=== PATIENT | female | born 1930 | race Caucasian/White ===

== ENCOUNTER 2017-02-07 06:06 | Day surgery (SDC) | payer MEDICARE, OTHER ==
[~2017-02-07 06:06] MED LIST: Lactated Ringers 1,000 ML IV SCH; Lidocaine 1%/Sod Bicarbonate in NS 8.4% 1 ML Syringe IV PRN; Sodium Chloride 0.9% 10 ML Syringe FLUSH PRN
[2017-02-07] MEDS ORDERED: ceFAZolin 1 GM Vial ONE (07:10)
[2017-02-07] MEDS ORDERED: Lidocaine 1% 30 ML SDV ONE (07:13)
[2017-02-07] MEDS ORDERED: Bupivacaine 0.25% 10 ML SDV ONE (07:13)
[2017-02-07] MEDS ORDERED: ceFAZolin 2 GM in Premix Bag 1 BAG IV SCH (07:15)
[2017-02-07 08:13] VITALS: BP 132/68
--- NOTE | 2017-02-07 09:54 | PCM.OPNOTE ---
- General Post-Op/Procedure Note Date of Surgery/Procedure: 02/07/17 Operative Procedure(s): revision left carpal tunnel release Pre Op Diagnosis: left carpal tunnel release Post-Op Diagnosis: Same Anesthesia Technique: Local Primary Surgeon: Amandeep Hernandez Forestry Worker: Saumya Moran in mLs: 5 Complications: None Condition: Good
--- NOTE | 2017-02-13 09:02 | OR ---
DATE OF OPERATION: 02/07/2017 SURGEON: Amandeep Hernandez MD OPERATION PERFORMED: Revision of left carpal tunnel release. 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 POSTOPERATIVE DIAGNOSIS: Left median nerve compression neuropathy. ANESTHESIA TECHNIQUE: Local. ANESTHESIA: None. COMPANY ACCOUNTANT: Saumya Moran PA-C. ESTIMATED BLOOD LOSS: 5 mL. COMPLICATIONS: None. CONDITION: Stable. DESCRIPTION OF PROCEDURE: The patient was identified in the preop holding area. Proper site was marked and identified by the surgeon. The patient was taken back to the operating theater, where after adequate anesthesia, the patient's left upper extremity was sterilely prepped and draped in the usual sterile fashion. OR time-out was performed. The patient received 2 g of IV Ancef in the PACU. At this time, the left upper extremity was anesthetized using 0.25% Marcaine without epinephrine and 1% lidocaine without epinephrine, both the incisional site and at the palmar cutaneous branch of the median nerve. The patient had an Esmarch done in her forearm and used as tourniquet. An incision was made using Edward cardinal line in the ulnar border of the fourth digit. A blunt dissection was taken down to the scar tissue. [place] blade was then used for careful resection of the scar tissue. The median nerve was then identified. A [place] elevator was then placed below the scar tissue and resection of the scar tissue and transverse carpal ligament was done all the way distally to the palmar arch. Once this was completed, attention was turned proximally making sure to keep the tips of ulna just under the scar tissue and ligament. It was released proximally and found to have adequate release both proximally and distally. The nerve was found to be intact. At this time, adequate saline was irrigated through the wound. A 4- 0 nylon simple suture was used for closure of the skin. The patient tolerated the procedure well and sent to PACU in stable condition. MMODAL /[id number]
== END 2017-02-07 08:27 | disposition home or self-care (01) ==
LOC: JD.SDS 06:06
PROVIDERS: ATTEND Orthopaedic Surgery
DX: G56.02 Carpal tunnel syndrome, left upper limb (principal); I25.10 Atherosclerotic heart disease of native coronary artery without angina pectoris; I10 Essential (primary) hypertension; Z79.899 Other long term (current) drug therapy; Z98.890 Other specified postprocedural states; Z96.649 Presence of unspecified artificial hip joint
CPT/HCPCS: 64721; 87641; J0690; J7120

== ENCOUNTER 2019-08-02 09:08 | Emergency (ER) | payer MEDICARE, OTHER ==
[2019-08-02 09:17] VITALS: BP 151/101; PULSE 107
[2019-08-02] MEDS ORDERED: Aspirin 81 MG Tab.Chew PO ONE (10:41)
--- NOTE | 2019-08-02 10:41 | EDM.PDOC ---
ED HPI GENERAL MEDICAL PROBLEM - General Chief Complaint: Respiratory Problem Stated Complaint: SOB Time Seen by Provider: 08/02/19 09:20 Source of Information: Reports: Patient, Family History Limitations: Reports: No Limitations - History of Present Illness INITIAL COMMENTS - FREE TEXT/NARRATIVE: The patient presents with shortness of breath. This started early this started yesterday. She felt like she needed to take a deep breath to catch her breath. This continued this morning at 2:30 am when she got up to go to the bathroom. 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 She denies any chest pain. She has no fever, chills, cough, congestion, runny nose, abdominal pain, nausea or vomiting. She had stents placed a few years ago. She does not smoke and she has no history of asthma or COPD. She has no history of PE or DVT. She has no swelling or pain in her legs. Onset: Gradual Duration: Day(s): (Yesterday) Severity: Moderate Improves with: Reports: None Worsens with: Reports: None Associated Symptoms: Reports: Shortness of Breath. Denies: Chest Pain, Cough, Fever/Chills, Headaches, Nausea/Vomiting - Related Data Allergies Allergy/AdvReac Type Severity Reaction Status Date / Time No Known Allergies Allergy Verified 08/02/19 09:17 Home Meds: Home Meds Aspirin 81 mg PO DAILY 02/06/17 [History] Ezetimibe/Simvastatin [Vytorin 10-40 mg Tablet] 1 tab PO DAILY 02/06/17 [History ] Lisinopril 5 mg PO DAILY 02/06/17 [History] Past Medical History HEENT History: Reports: Impaired Vision, Other (See Below) Other HEENT History: wears glasses Cardiovascular History: Reports: CAD, High Cholesterol, Hypertension, [place], Stents , Other (See Below) Other Cardiovascular History: arteriosclerotic heart disease Respiratory History: Reports: Other (See Below) Other Respiratory History: upper respiratory infection Gastrointestinal History: Reports: Cholelithiasis, Chronic Constipation, Hiatal Hernia ARTIST'S MANAGER History: Reports: None Musculoskeletal History: Reports: Other (See Below) Other Musculoskeletal History: lumbar spinal stenosis Neurological History: Reports: None Psychiatric History: Reports: Anxiety Endocrine/Metabolic History: Reports: None Hematologic History: Reports: None Immunologic History: Reports: None Oncologic (Cancer) History: Reports: None Dermatologic History: Reports: Other (See Below) Other Dermatologic History: seborrheic keratosis - Past Surgical History Head Surgeries/Procedures: Reports: None HEENT Surgical History: Reports: Cataract Surgery Cardiovascular Surgical History: Reports: Coronary Artery Stent Female Surgical History: Reports: Hysterectomy Musculoskeletal Surgical History: Reports: Hip Replacement, Other (See Below) Social & Family History - Tobacco Use Smoking Status *Q: Never Smoker - Caffeine Use Caffeine Use: Reports: Coffee - Recreational Drug Use Recreational Drug Use: No ED ROS GENERAL - Review of Systems Review Of Systems: See Below Constitutional: Reports: No Symptoms HEENT: Reports: No Symptoms Respiratory: Reports: Shortness of Breath. Denies: Cough Cardiovascular: Reports: No Symptoms Endocrine: Reports: No Symptoms GI/Abdominal: Reports: No Symptoms : Reports: No Symptoms Musculoskeletal: Reports: No Symptoms Skin: Reports: No Symptoms ED EXAM, GENERAL - Physical Exam Exam: See Below Exam Limited By: No Limitations General Appearance: Alert, No Apparent Distress Ears: Normal External Exam Nose: Normal Inspection Head: Atraumatic, Normocephalic Neck: Normal Inspection Respiratory/Chest: No Respiratory Distress, Lungs Clear, Normal Breath Sounds Cardiovascular: Regular Rate, Rhythm, No Edema, No Murmur GI/Abdominal: Soft, Non-Tender, No Organomegaly, No Mass Back Exam: Normal Inspection Extremities: Normal Inspection Course - Vital Signs Last Recorded V/S: Last Vital Signs Temp 97.6 F 08/02/19 09:13 Pulse 107 H 08/02/19 09:13 Resp 18 08/02/19 09:13 BP 151/101 H 08/02/19 09:13 Pulse Ox 90 L 08/02/19 09:13 - Orders/Labs/Meds Orders: Active Orders 24 hr Category Date Time Status Cardiac Monitoring [RC] . DIRECTED Care 08/02/19 09:33 Active EKG Documentation Completion [RC] STAT Care 08/02/19 09:33 Active Peripheral IV Care [RC] . DIRECTED Care 08/02/19 10:41 Active Chest 2V [CR] Stat Exams 08/02/19 09:34 Taken PRO B-TYPE NATRIUR PEPT,BNPPRO [CHEM] Stat Lab 08/02/19 11:37 Ordered Sodium Chloride 0.9% [Normal Saline] 100 ml Med 08/02/19 11:00 Active IV ASDIRECTED Sodium Chloride 0.9% [Saline Flush] Med 08/02/19 10:41 Active 10 ml FLUSH ASDIRECTED PRN Peripheral IV Insertion Adult [OM.PC] Routine Oth 08/02/19 10:41 Ordered Medication Orders Sodium Chloride (Normal Saline) 100 mls @ 75 mls/hr IV ASDIRECTED ELI Last Admin: 08/02/19 11:13 Dose: 75 mls/hr Sodium Chloride (Saline Flush) 10 ml FLUSH ASDIRECTED PRN PRN Reason: Keep Vein Open Last Admin: 08/02/19 11:13 Dose: 10 ml Admin: 08/02/19 10:52 Dose: 10 ml Labs: Laboratory Tests 08/02/19 08/02/19 08/02/19 Range/Units 09:55 09:55 09:55 WBC 9.33 (3.98-10.04) K/mm3 RBC 4.97 (3.98-5.22) M/mm3 Hgb 14.3 (11.2-15.7) gm/dl Hct 43.0 (34.1-44.9) % MCV 86.5 D (79.4-94.8) fl MCH 28.8 (25.6-32.2) pg MCHC 33.3 (32.2-35.5) g/dl RDW Std Deviation 44.7 (36.4-46.3) fL Plt Count 324 (182-369) K/mm3 MPV 9.5 (9.4-12.3) fl Neut % (Auto) 75.9 H (34.0-71.1) % Lymph % (Auto) 16.2 L (19.3-51.7) % [place] % (Auto) 6.8 (4.7-12.5) % Eos % (Auto) 0.6 L (0.7-5.8) Baso % (Auto) 0.4 (0.1-1.2) % Neut # (Auto) 7.08 H (1.56-6.13) K/mm3 Lymph # (Auto) 1.51 (1.18-3.74) K/mm3 [place] # (Auto) 0.63 H (0.24-0.36) K/mm3 Eos # (Auto) 0.06 (0.04-0.36) K/mm3 Baso # (Auto) 0.04 (0.01-0.08) K/mm3 D-Dimer, Quantitative 0.81 H (0.19-0.50) mg/L Sodium 140 (136-145) mEq/L Potassium 4.2 (3.5-5.1) mEq/L Chloride 103 (98-107) mEq/L Carbon Dioxide 26 (21-32) mEq/L Anion Gap 15.2 H (5-15) BUN 15 (7-18) mg/dL Creatinine 1.0 (0.55-1.02) mg/dL Est Cr Clr Drug Dosing 32.17 mL/min Estimated GFR (MDRD) 52 (>60) mL/min BUN/Creatinine Ratio 15.0 (14-18) Glucose 115 (83-115) mg/dL Calcium 9.3 (8.5-10.1) mg/dL Total Bilirubin 0.9 (0.2-1.0) mg/dL AST 21 (15-37) U/L ALT 24 (14-59) U/L Alkaline Phosphatase 88 (46-116) U/L Troponin I 0.197 H* (0.00-0.056) ng/mL Total Protein 7.2 (6.4-8.2) g/dl Albumin 3.4 (3.4-5.0) g/dl Globulin 3.8 gm/dL Albumin/Globulin Ratio 0.9 L (1-2) Meds: Medications Generic Name Dose Route Start Last Admin Trade Name Freq PRN Reason Stop Dose Admin Sodium Chloride 100 mls @ 75 mls/hr 08/02/19 11:00 08/02/19 11:13 Normal Saline IV 75 mls/hr ASDIRECTED ELI Administration Sodium Chloride 10 ml 08/02/19 10:41 08/02/19 11:13 Saline Flush FLUSH 10 ml ASDIRECTED PRN Administration Keep Vein Open Discontinued Medications Generic Name Dose Route Start Last Admin Trade Name Freq PRN Reason Stop Dose Admin Aspirin 324 mg 08/02/19 10:41 08/02/19 10:46 Aspirin PO 08/02/19 10:42 324 mg ONETIME ONE Administration Iopamidol 100 ml 08/02/19 10:55 08/02/19 11:13 Isovue-370 (76%) IVPUSH 08/02/19 10:56 100 ml ONETIME ONE Administration - Re-Assessments/Exams Free Text/Narrative Re-Assessment/Exam: 08/02/19 11:18 I ordered an EKG, CXR and labs. Her EKG shows a NSR with Q waves in the inferior and anterior leads. They appear old. There is no acute changes. He CXR shows no infiltrates. Her CBC looks good. Her anion gap is elevated slightly at 15.2. Her D-dimer is elevated at 0.81. Her troponin is elevated at 0.197. She still has no chest pain. I ordered aspirin and an IV and CT angio. 08/02/19 11:[address] shows small to moderate sized bilateral pleural effusions. Cardiomegaly and groundglass appearance most within the lungs likely representing mild pulmonary vascular congestion. Areas of increased density within the right middle lobe and more prominently within the lingula. This this represents either atelectasis or possibly areas of pneumonia. No findings of pulmonary embolism. Moderate coronary artery calcification. She still does not have chest pain. She is not short of breath sitting in her room. I feel she had a nonSTEMI. I called [facility] in [place] and talked with the hospitalist Dr Looney and she accepted the patient. We do not need any heparin at this time. 08/02/19 12:02 Departure - Departure Time of Disposition: 12:05 Disposition: DC/Tfer to Acute Hospital 02 Condition: Fair Clinical Impression: Non-STEMI (non-ST elevated myocardial infarction) Dyspnea Qualifiers: Dyspnea type: shortness of breath Qualified Code(s): R06.02 - Shortness of breath; R06.00 - Dyspnea, unspecified; R06.01 - Orthopnea - Discharge Information Referrals: Wayne Velez MD [Primary Care Provider] - Forms: ED Department Discharge - My Orders Last 24 Hours: My Active Orders 08/02/19 09:33 Cardiac Monitoring [RC] . DIRECTED EKG Documentation Completion [RC] STAT 08/02/19 09:34 Chest 2V [CR] Stat 08/02/19 10:41 Peripheral IV Care [RC] . DIRECTED Sodium Chloride 0.9% [Saline Flush] 10 ml FLUSH ASDIRECTED PRN Peripheral IV Insertion Adult [OM.PC] Routine 08/02/19 11:00 Sodium Chloride 0.9% [Normal Saline] 100 ml IV ASDIRECTED 08/02/19 11:37 PRO B-TYPE NATRIUR PEPT,BNPPRO [CHEM] Stat - Assessment/Plan Last 24 Hours: My Active Orders 08/02/19 09:33 Cardiac Monitoring [RC] . DIRECTED EKG Documentation Completion [RC] STAT 08/02/19 09:34 Chest 2V [CR] Stat 08/02/19 10:41 Peripheral IV Care [RC] . DIRECTED Sodium Chloride 0.9% [Saline Flush] 10 ml FLUSH ASDIRECTED PRN Peripheral IV Insertion Adult [OM.PC] Routine 08/02/19 11:00 Sodium Chloride 0.9% [Normal Saline] 100 ml IV ASDIRECTED 08/02/19 11:37 PRO B-TYPE NATRIUR PEPT,BNPPRO [CHEM] Stat
[2019-08-02] MEDS: Sodium Chloride 0.9% 10 ML Syringe FLUSH PRN ×2 (10:52→11:13)
[2019-08-02] MEDS ORDERED: Iopamidol 755 Mg/ML 100 ML Bottle IVPUSH ONE (10:55)
[2019-08-02] MEDS ORDERED: Sodium Chloride 0.9% 100 ML IV SCH (11:00)
--- NOTE | 2019-08-02 11:42 | CT ---
CT chest Technique: Multiple axial sections through the chest were obtained. Intravenous contrast was utilized. Study has been performed as a pulmonary angiogram protocol. Findings: Pulmonary arteries are well-opacified. No filling defects are seen to indicate pulmonary embolism. Heart is enlarged. Moderate coronary artery calcification is seen. Small to moderate sized bilateral pleural effusions are seen. Scattered parenchymal densities are seen within the lingula and right middle lobe. Hazy groundglass appearance is seen most likely representing mild pulmonary vascular congestion. Visualized upper abdominal structures shows prior cholecystectomy. Bone window settings were reviewed which shows mild scattered degenerative change throughout the spine. No acute osseous abnormality is appreciated. Impression: 1. Small to moderate sized bilateral pleural effusions. Cardiomegaly and groundglass appearance most within the lungs likely representing mild pulmonary vascular congestion. 2. Areas of increased density within the right middle lobe and more prominently within the lingula. This represents either atelectasis or possibly areas of pneumonia. 3. No findings of pulmonary embolism. 4. Moderate coronary artery calcification. Diagnostic code #3
--- NOTE | 2019-08-02 15:01 | CR ---
Chest: PA and lateral views of the chest were obtained. Comparison: Prior chest x-ray of 09/01/10. Areas of increased density seen within both lung bases, worse on the left side. Heart is slightly enlarged. Tortuous thoracic aorta is seen. Lungs are hyperinflated compatible with emphysematous change. Previous cervical spine surgery is noted. Impression: 1. Increased density within both lung bases, worse on the left side. Findings most likely represent pneumonia. 2. Mild cardiomegaly. 3. Emphysematous change. Diagnostic code #3
== END 2019-08-02 13:29 ==
LOC: JD.ED 09:08
DX: I21.4 Non-ST elevation (NSTEMI) myocardial infarction (principal); I10 Essential (primary) hypertension; I25.10 Atherosclerotic heart disease of native coronary artery without angina pectoris; E78.00 Pure hypercholesterolemia, unspecified; Z95.5 Presence of coronary angioplasty implant and graft; Z79.82 Long term (current) use of aspirin; Z79.899 Other long term (current) drug therapy
CPT/HCPCS: 36415; 71046; 71275; 80053; 83880; 84484; 85025; 85379; 93005; 99285; A9270; J7030; Q9967; 93010

== ENCOUNTER 2019-08-13 12:07 | Emergency (ER) | payer MEDICARE, OTHER ==
[2019-08-13 12:23] VITALS: BP 116/64; PULSE 83
[2019-08-13] MEDS ORDERED: Sodium Polystyrene Sulfonate 15 GM/60 ML Susp 60 ML Bot RECTAL ONE (12:34)
--- NOTE | 2019-08-13 13:58 | EDM.PDOC ---
ED HPI GENERAL MEDICAL PROBLEM - General Chief Complaint: Cardiovascular Problem Stated Complaint: CHF Time Seen by Provider: 08/13/19 12:20 Source of Information: Reports: Patient, Provider History Limitations: Reports: No Limitations - History of Present Illness INITIAL COMMENTS - FREE TEXT/NARRATIVE: The patient presents from home with hyperkalemia. She was seen here last week and her cardiac enzymes were elevated and she had some CHF. She had an angiogram done and nothing significant was found. She was feeling good and followed up with Dr Velez. Her potassium was 6. He rechecked the potassium today and it was 6.5. There was no real reason for this elevation found. Dr Velez sent her up here to get a kaexylate enema. She has no symptoms such as fever, chills, cough, chest pain, shortness of breath, abdominal pain, nausea or vomiting. Onset: Gradual Duration: Day(s): Severity: Moderate Improves with: Reports: None Worsens with: Reports: None Associated Symptoms: Reports: No Other Symptoms - Related Data Allergies Allergy/AdvReac Type Severity Reaction Status Date / Time No Known Allergies Allergy Verified 08/02/19 09:17 Home Meds: Home Meds Aspirin 81 mg PO DAILY 02/06/17 [History] Ezetimibe/Simvastatin [Vytorin 10-40 mg Tablet] 1 tab PO DAILY 02/06/17 [History ] Lisinopril 5 mg PO DAILY 02/06/17 [History] Calcium Carbonate/Vitamin D3 [Calcium 500 + Vit D 400] 1 tab PO ASDIRECTED 08/13 [History] Furosemide [Lasix] 20 mg PO DAILY 08/13/19 [History] Metoprolol Succinate [Toprol XL] 25 mg PO DAILY 08/13/19 [History] Bourg-3/DHA/Epa/Fish Oil [Bourg-3 Fish Oil 1,000 MG Sfgl] 1,000 mg PO DAILY 08/22 [History] metFORMIN [Glucophage] 250 mg PO BID 08/13/19 [History] Past Medical History HEENT History: Reports: Impaired Vision, Other (See Below) Other HEENT History: wears glasses Cardiovascular History: Reports: CAD, High Cholesterol, Hypertension, [place], Stents , Other (See Below) Other Cardiovascular History: arteriosclerotic heart disease Respiratory History: Reports: Other (See Below) Other Respiratory History: upper respiratory infection Gastrointestinal History: Reports: Cholelithiasis, Chronic Constipation, Hiatal Hernia MERCHANDISING MANAGER History: Reports: None Musculoskeletal History: Reports: Other (See Below) Other Musculoskeletal History: lumbar spinal stenosis Neurological History: Reports: None Psychiatric History: Reports: Anxiety Endocrine/Metabolic History: Reports: None Hematologic History: Reports: None Immunologic History: Reports: None Oncologic (Cancer) History: Reports: None Dermatologic History: Reports: Other (See Below) Other Dermatologic History: seborrheic keratosis - Past Surgical History Head Surgeries/Procedures: Reports: None HEENT Surgical History: Reports: Cataract Surgery Cardiovascular Surgical History: Reports: Coronary Artery Stent Female Surgical History: Reports: Hysterectomy Musculoskeletal Surgical History: Reports: Hip Replacement, Other (See Below) Social & Family History - Tobacco Use Smoking Status *Q: Never Smoker - Caffeine Use Caffeine Use: Reports: Coffee, Soda - Recreational Drug Use Recreational Drug Use: No ED ROS GENERAL - Review of Systems Review Of Systems: See Below Constitutional: Reports: No Symptoms HEENT: Reports: No Symptoms Respiratory: Reports: No Symptoms Cardiovascular: Reports: No Symptoms Endocrine: Reports: No Symptoms GI/Abdominal: Reports: No Symptoms : Reports: No Symptoms Musculoskeletal: Reports: No Symptoms ED EXAM, GENERAL - Physical Exam Exam: See Below Exam Limited By: No Limitations General Appearance: Alert, No Apparent Distress Course - Vital Signs Last Recorded V/S: Last Vital Signs Temp 95.9 F 08/13/19 12:21 Pulse 83 08/13/19 12:21 Resp 20 08/13/19 12:21 BP 116/64 08/13/19 12:21 Pulse Ox 93 L 08/13/19 12:21 - Orders/Labs/Meds Meds: Medications Discontinued Medications Generic Name Dose Route Start Last Admin Trade Name Freq PRN Reason Stop Dose Admin Sodium Polystyrene Sulfonate 45 gm 08/13/19 12:34 08/13/19 13:33 Kayexalate RECTAL 08/13/19 12:35 45 gm NOW ONE Administration Departure - Departure Time of Disposition: 14:00 Disposition: Home, Self-Care 01 Condition: Good Clinical Impression: Hyperkalemia Referrals: Wayne Velez MD [Primary Care Provider] - 1 Day Additional Instructions: Follow up with Dr Velez tomorrow. Please return if you are worse.
== END 2019-08-13 14:54 | disposition home or self-care (01) ==
LOC: JD.ED 12:07
DX: E87.5 Hyperkalemia (principal); F41.9 Anxiety disorder, unspecified; E78.00 Pure hypercholesterolemia, unspecified; I25.10 Atherosclerotic heart disease of native coronary artery without angina pectoris; I10 Essential (primary) hypertension; I25.2 Old myocardial infarction; Z79.82 Long term (current) use of aspirin; Z79.899 Other long term (current) drug therapy; Z79.84 Long term (current) use of oral hypoglycemic drugs
CPT/HCPCS: 99284; A9270

== ENCOUNTER 2019-12-09 15:40 | Inpatient (IN) | payer MEDICARE, OTHER ==
--- NOTE | 2019-12-09 17:04 | EDM.PDOC ---
ED HPI GENERAL MEDICAL PROBLEM - General Chief Complaint: Cardiovascular Problem Stated Complaint: HIGH BP Time Seen by Provider: 12/09/19 16:23 Source of Information: Reports: Patient History Limitations: Reports: No Limitations - History of Present Illness INITIAL COMMENTS - FREE TEXT/NARRATIVE: Patient is an 89-year-old female who presents with complaints of high blood pressure. She states that she checked her blood pressure at home this morning and it was higher than normal for her, however she cannot remember exactly what the blood pressure reading was. Patient states that she has not been sleeping well at night because she is having tooth pain. She is on amoxicillin for this which was prescribed by her dentist. She also states that she is had some mild shortness of breath that she feels she is coming down with an upper respiratory infection. She did take a ipxl-bol-lolhecy cold medicine this morning, however she is unsure of what the medication was. She states that her blood pressures usually run in the 130s over 70s or 80s. She denies any headache or chest pain. - Related Data Allergies Allergy/AdvReac Type Severity Reaction Status Date / Time No Known Allergies Allergy Verified 12/09/19 15:54 Home Meds: Home Meds Aspirin 81 mg PO DAILY 02/06/17 [History] Ezetimibe/Simvastatin [Vytorin 10-40 mg Tablet] 1 tab PO DAILY 02/06/17 [History ] Calcium Carbonate/Vitamin D3 [Calcium 500 + Vit D 400] 1 tab PO ASDIRECTED 08/13 [History] Furosemide [Lasix] 20 mg PO DAILY 08/13/19 [History] Metoprolol Succinate [Toprol XL] 25 mg PO DAILY 08/13/19 [History] [place]-3/DHA/Epa/Fish Oil [[place]-3 Fish Oil 1,000 MG Sfgl] 720 mg PO DAILY [History] metFORMIN [Glucophage] 250 mg PO DAILY 08/13/19 [History] Past Medical History HEENT History: Reports: Impaired Vision, Other (See Below) Other HEENT History: wears glasses Cardiovascular History: Reports: CAD, High Cholesterol, Hypertension, [place], Stents , Other (See Below) Other Cardiovascular History: arteriosclerotic heart disease Respiratory History: Reports: Other (See Below) Other Respiratory History: upper respiratory infection Gastrointestinal History: Reports: Cholelithiasis, Chronic Constipation, Hiatal Hernia 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: Musculoskeletal History: Reports: Other (See Below) Other Musculoskeletal History: lumbar spinal stenosis Neurological History: Reports: None Psychiatric History: Reports: Anxiety Endocrine/Metabolic History: Reports: None Hematologic History: Reports: None Immunologic History: Reports: None Oncologic (Cancer) History: Reports: None Dermatologic History: Reports: Other (See Below) Other Dermatologic History: seborrheic keratosis - Infectious Disease History Infectious Disease History: Reports: Chicken Pox, Measles - Past Surgical History Head Surgeries/Procedures: Reports: None HEENT Surgical History: Reports: Cataract Surgery Cardiovascular Surgical History: Reports: Coronary Artery Stent GI Surgical History: Reports: Cholecystectomy Female Surgical History: Reports: Hysterectomy Neurological Surgical History: Reports: Other (See Below) Other Neurological Surgeries/Procedures: back sx to remove spurs Musculoskeletal Surgical History: Reports: Carpal Tunnel, Hip Replacement, Other (See Below) Other Musculoskeletal Surgeries/Procedures:: L leg distal fibular fx, Social & Family History - Family History Family Medical History: Noncontributory - Tobacco Use Smoking Status *Q: Never Smoker Second Hand Smoke Exposure: No - Caffeine Use Caffeine Use: Reports: Coffee, Tea - Recreational Drug Use Recreational Drug Use: No ED ROS GENERAL - Review of Systems Review Of Systems: Comprehensive ROS is negative, except as noted in HPI. ED EXAM, GENERAL - Physical Exam Exam: See Below Exam Limited By: No Limitations General Appearance: Alert, WD/WN, No Apparent Distress Respiratory/Chest: No Respiratory Distress, Lungs Clear, Normal Breath Sounds, No Accessory Muscle Use, Chest Non-Tender Cardiovascular: Normal Peripheral Pulses, Regular Rate, Rhythm, No Edema, No Gallop, No JVD, No Murmur, No Rub Extremities: Normal Inspection, Normal Range of Motion, Non-Tender, Normal Capillary Refill, No Pedal Edema Neurological: Alert, Oriented, CN II-XII Intact, Normal Cognition, Normal Gait, Normal Reflexes, No Motor/Sensory Deficits Psychiatric: Normal Affect, Normal Mood Skin Exam: Warm, Dry, Intact, Normal Color, No Rash EKG INTERPRETATION EKG Date: 12/09/19 Time: 17:12 Rhythm: NSR Rate (Beats/Min): 72 [place]: Normal P-Wave: Present QRS: Normal ST-T: Normal QT: Normal EKG Interpretation Comments: Sinus rhythm ventricular premature complex prolonged MT interval Inferior infarct, old anterior infarct, old EKG interpreted by Dr. Rachael MD. Course - Vital Signs Last Recorded V/S: Last Vital Signs Temp 97.1 F 12/09/19 15:51 Pulse 76 12/09/19 20:52 Resp 16 12/09/19 15:51 BP 153/84 H 12/09/19 20:52 Pulse Ox 96 12/09/19 15:51 - Orders/Labs/Meds Orders: Active Orders 24 hr Category Date Time Status Patient Status [ADT] Routine ADT 12/09/19 20:46 Active Chest 1V Frontal [CR] Stat Exams 12/09/19 16:35 Taken Labs: Laboratory Tests 12/09/19 12/09/19 12/09/19 Range/Units 16:56 16:56 16:56 WBC 7.59 (3.98-10.04) K/mm3 RBC 5.35 H (3.98-5.22) M/mm3 Hgb 15.1 (11.2-15.7) gm/dl Hct 46.2 H (34.1-44.9) % MCV 86.4 (79.4-94.8) fl MCH 28.2 (25.6-32.2) pg MCHC 32.7 (32.2-35.5) g/dl RDW Std Deviation 47.3 H (36.4-46.3) fL Plt Count 345 (182-369) K/mm3 MPV 9.6 (9.4-12.3) fl Neut % (Auto) 60.5 (34.0-71.1) % Lymph % (Auto) 30.3 (19.3-51.7) % [place] % (Auto) 6.6 (4.7-12.5) % Eos % (Auto) 2.0 (0.7-5.8) Baso % (Auto) 0.5 (0.1-1.2) % Neut # (Auto) 4.59 (1.56-6.13) K/mm3 Lymph # (Auto) 2.30 (1.18-3.74) K/mm3 [place] # (Auto) 0.50 H (0.24-0.36) K/mm3 Eos # (Auto) 0.15 (0.04-0.36) K/mm3 Baso # (Auto) 0.04 (0.01-0.08) K/mm3 Manual Slide Review Abnormal smear Sodium 140 (136-145) mEq/L Potassium 4.6 (3.5-5.1) mEq/L Chloride 102 (98-107) mEq/L Carbon Dioxide 29 (21-32) mEq/L Anion Gap 13.6 (5-15) BUN 17 (7-18) mg/dL Creatinine 1.2 H (0.55-1.02) mg/dL Est Cr Clr Drug Dosing 27.98 mL/min Estimated GFR (MDRD) 42 (>60) mL/min BUN/Creatinine Ratio 14.2 (14-18) Glucose 104 (83-115) mg/dL Calcium 9.7 (8.5-10.1) mg/dL Total Bilirubin 0.8 (0.2-1.0) mg/dL AST 29 (15-37) U/L ALT 42 (14-59) U/L Alkaline Phosphatase 108 (46-116) U/L Troponin I 0.092 H* (0.00-0.056) ng/mL NT-Pro-B Natriuret Pep 3308 H (0-450) pg/mL Total Protein 7.9 (6.4-8.2) g/dl Albumin 3.6 (3.4-5.0) g/dl Globulin 4.3 gm/dL Albumin/Globulin Ratio 0.8 L (1-2) 12/09/19 Range/Units 19:27 WBC (3.98-10.04) K/mm3 RBC (3.98-5.22) M/mm3 Hgb (11.2-15.7) gm/dl Hct (34.1-44.9) % MCV (79.4-94.8) fl MCH (25.6-32.2) pg MCHC (32.2-35.5) g/dl RDW Std Deviation (36.4-46.3) fL Plt Count (182-369) K/mm3 MPV (9.4-12.3) fl Neut % (Auto) (34.0-71.1) % Lymph % (Auto) (19.3-51.7) % [place] % (Auto) (4.7-12.5) % Eos % (Auto) (0.7-5.8) Baso % (Auto) (0.1-1.2) % Neut # (Auto) (1.56-6.13) K/mm3 Lymph # (Auto) (1.18-3.74) K/mm3 [place] # (Auto) (0.24-0.36) K/mm3 Eos # (Auto) (0.04-0.36) K/mm3 Baso # (Auto) (0.01-0.08) K/mm3 Manual Slide Review Sodium (136-145) mEq/L Potassium (3.5-5.1) mEq/L Chloride (98-107) mEq/L Carbon Dioxide (21-32) mEq/L Anion Gap (5-15) BUN (7-18) mg/dL Creatinine (0.55-1.02) mg/dL Est Cr Clr Drug Dosing mL/min Estimated GFR (MDRD) (>60) mL/min BUN/Creatinine Ratio (14-18) Glucose (83-115) mg/dL Calcium (8.5-10.1) mg/dL Total Bilirubin (0.2-1.0) mg/dL AST (15-37) U/L ALT (14-59) U/L Alkaline Phosphatase (46-116) U/L Troponin I 0.108 H* (0.00-0.056) ng/mL NT-Pro-B Natriuret Pep (0-450) pg/mL Total Protein (6.4-8.2) g/dl Albumin (3.4-5.0) g/dl Globulin gm/dL Albumin/Globulin Ratio (1-2) Meds: Medications Discontinued Medications Generic Name Dose Route Start Last Admin Trade Name Freq PRN Reason Stop Dose Admin Aspirin 324 mg 12/09/19 17:57 12/09/19 18:15 Aspirin PO 12/09/19 17:58 324 mg ONETIME ONE Administration Enoxaparin Sodium 80 mg 12/09/19 20:32 12/09/19 20:49 Lovenox SUBCUT 12/09/19 20:33 80 mg ONETIME ONE Administration Furosemide 20 mg 12/09/19 18:55 Lasix PO 12/09/19 18:56 ONETIME ONE Furosemide 40 mg 12/09/19 18:55 12/09/19 19:05 Lasix PO 12/09/19 18:56 40 mg ONETIME ONE Administration Metoprolol Tartrate 12.5 mg 12/09/19 20:31 12/09/19 20:52 Lopressor PO 12/09/19 20:32 12.5 mg ONETIME ONE Administration - Re-Assessments/Exams Free Text/Narrative Re-Assessment/Exam: 12/09/19 18:25 Patient's troponin came back elevated at 0.092. When I discussed this with the patient, she did mention that this morning she had some epigastric pressure/ pain upon waking. She states it was never in her chest, however it was directly below her sternum. Pain is no longer present at this time. She denies any significant shortness of breath, however she does have a cough. Chest x-ray does show infiltrates versus pulmonary congestion to the bilateral lower lobes. I have ordered a BNP to be added on. We will recheck a troponin approximately 2 hours from the original draw. 12/09/191999 Repeat troponin was even further elevated at 0.108. I did call [facility] in [place] to discuss these findings with a fuller brush worker. Spoke with Dr. Avina fuller brush worker. There are currently no available beds at either [facility] or [facility]. Dr. Avina recommends medical management of patient symptoms with possible transfer tomorrow when beds become available. He recommended Lovenox subcutaneous, aspirin, and a beta-bettina. Discussed this with our hospitalist, Dr. Boogie. Patient will be admitted to [facility] with telemetry for medical management of non-STEMI. I have ordered Lovenox 80 mg, metoprolol 12.5 mg p.o. she did already see the dose of aspirin 324 mg p.o. The one-call nurse at [facility] in [place] recommends that we call around 7:00 tomorrow morning to speak with an accepting physician and arrange for transfer. They expect that they will have discharges later in the morning and that a bed will be opening. Departure - Departure Time of Disposition: 21:00 Disposition: Admitted As Inpatient 66 Condition: Fair Clinical Impression: Non-STEMI (non-ST elevated myocardial infarction) Sepsis Event Note - Evaluation Sepsis Screening Result: No Definite Risk - Focused Exam Vital Signs: Vital Signs Temp Pulse Pulse Resp BP BP Pulse Ox 12/09/19 20:52 76 153/84 H 12/09/19 15:51 97.1 F 78 16 177/105 H 96 Date Exam was Performed: 12/09/19 Time Exam was Performed: 22:19 - My Orders Last 24 Hours: My Active Orders 12/09/19 16:35 Chest 1V Frontal [CR] Stat 12/09/19 20:46 Patient Status [ADT] Routine - Assessment/Plan Last 24 Hours: My Active Orders 12/09/19 16:35 Chest 1V Frontal [CR] Stat 12/09/19 20:46 Patient Status [ADT] Routine
[2019-12-09] MEDS ORDERED: Aspirin 81 MG Tab.Chew PO ONE (17:57)
[2019-12-09] MEDS ORDERED: Furosemide 20 MG Tab PO ONE ×2 (18:55)
[2019-12-09] MEDS ORDERED: Metoprolol Tartrate 25 MG Tab PO ONE (20:31)
[2019-12-09] MEDS ORDERED: Enoxaparin 80 MG/0.8 ML Syringe SUBCUT ONE (20:32)
--- NOTE | 2019-12-10 07:28 | CR ---
Chest: Portable view of the chest was obtained. Comparison: Prior chest CT of 08/02/19 and chest x-ray of 08/02/19. Parenchymal density is noted within the left lower lung most likely representing scarring. Findings are improved from previous exam. Minimal scarring within the right base is seen. Central lung markings are slightly increased most likely representing chronic pulmonary vascular congestion. Heart is enlarged. Bony structures are grossly intact. Impression: 1. Cardiomegaly and mild chronic appearing pulmonary vascular congestion. 2. Scarring is noted within both lung bases, worse on the left side. Diagnostic code #2 This report was dictated in [place] Standard Time
[2019-12-10] MEDS ORDERED: Enoxaparin 80 MG/0.8 ML Syringe SUBCUT SCH (09:15)
--- NOTE | 2019-12-10 09:16 | PCM.HP.2 ---
H&P History of Present Illness - General Date of Service: 12/10/19 Admit Problem/Dx: Admission Diagnosis/Problem Admission Diagnosis/Problem NSTEMI, initial episode of care - History of Present Illness Initial Comments - Free Text/Narative: This is an 89-year-old male who comes to the ED complaining of elevated blood pressure. As per patient she normally ranges between 130's/70's, she does not recall particular number but does note it was significantly higher that normal. She notes about a week ago she thought she was coming down with URI because she started having worsening shortness of breath however symptoms did not really fully manifest except for the shortness of breath. - Related Data Allergies/Adverse Reactions: Allergies Allergy/AdvReac Type Severity Reaction Status Date / Time No Known Allergies Allergy Verified 12/09/19 23:52 Home Medications: Home Meds Aspirin 81 mg PO DAILY 02/06/17 [History] Ezetimibe/Simvastatin [Vytorin 10-40 mg Tablet] 1 tab PO DAILY 02/06/17 [History ] Calcium Carbonate/Vitamin D3 [Calcium 500 + Vit D 400] 1 tab PO ASDIRECTED 08/13 [History] Furosemide [Lasix] 20 mg PO DAILY 08/13/19 [History] Metoprolol Succinate [Toprol XL] 25 mg PO DAILY 08/13/19 [History] [place]-3/DHA/Epa/Fish Oil [[place]-3 Fish Oil 1,000 MG Sfgl] 720 mg PO DAILY [History] metFORMIN [Glucophage] 250 mg PO DAILY 08/13/19 [History] Amoxicillin 500 mg PO Q6HR 12/09/19 [History] Past Medical History HEENT History: Reports: Impaired Vision, Other (See Below) Other HEENT History: wears glasses Cardiovascular History: Reports: CAD, High Cholesterol, Hypertension, [place], Stents , Other (See Below) Other Cardiovascular History: arteriosclerotic heart disease Respiratory History: Reports: Other (See Below) Other Respiratory History: upper respiratory infection Gastrointestinal History: Reports: Cholelithiasis, Chronic Constipation, Hiatal Hernia 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: Musculoskeletal History: Reports: Other (See Below) Other Musculoskeletal History: lumbar spinal stenosis Neurological History: Reports: None Psychiatric History: Reports: Anxiety Endocrine/Metabolic History: Reports: None Hematologic History: Reports: None Immunologic History: Reports: None Oncologic (Cancer) History: Reports: None Dermatologic History: Reports: Other (See Below) Other Dermatologic History: seborrheic keratosis - Infectious Disease History Infectious Disease History: Reports: Chicken Pox, Measles - Past Surgical History Head Surgeries/Procedures: Reports: None HEENT Surgical History: Reports: Cataract Surgery Cardiovascular Surgical History: Reports: Coronary Artery Stent GI Surgical History: Reports: Cholecystectomy Female Surgical History: Reports: Hysterectomy Neurological Surgical History: Reports: Other (See Below) Other Neurological Surgeries/Procedures: back sx to remove spurs Musculoskeletal Surgical History: Reports: Carpal Tunnel, Hip Replacement, Other (See Below) Other Musculoskeletal Surgeries/Procedures:: L leg distal fibular fx, Social & Family History - Family History Family Medical History: Noncontributory - Tobacco Use Smoking Status *Q: Never Smoker Second Hand Smoke Exposure: No - Caffeine Use Caffeine Use: Reports: Coffee, Tea - Alcohol Use Date of Last Drink: 10/28/19 - Recreational Drug Use Recreational Drug Use: No H&P Review of Systems - Review of Systems: Review Of Systems: See Below General: Reports: Malaise. Denies: Fever, Chills, Weakness, Fatigue, Night Sweats, Diaphoresis, Decreased Appetite, Weight Loss, Weight Gain HEENT: Denies: Headaches, Hearing Changes, Rhinitis, Post Nasal Drip, Sinus Congestion, Sore Throat, Vertigo, Visual Changes Pulmonary: Reports: Shortness of Breath. Denies: Wheezing, Pleuritic Chest Pain , Cough, Sputum, Hemoptysis Cardiovascular: Denies: Chest Pain, Palpitations, Dyspnea on Exertion, Orthopnea , PND, Edema, Lightheadedness, Syncope, Claudication Gastrointestinal: Denies: Abdominal Pain, Anorexia, Black Stool, Bloody Stool, Constipation, Diarrhea, Decreased Appetite, Distension, Flatus, Hematemesis, Hematochezia, Nausea, Vomiting Musculoskeletal: Denies: Joint Pain, Joint Swelling, Muscle Pain, Muscle Stiffness Skin: Denies: Cyanosis, Jaundice, Mottled, Pallor, Diaphoresis Psychiatric: Denies: Confusion, Depression, Mood Lability, Anxiety Exam - Exam Exam: See Below - Vital Signs Vital Signs: Last Vital Signs Temp 97.5 F 12/10/19 07:25 Pulse 66 12/10/19 07:25 Resp 16 12/10/19 07:25 BP 159/76 H 12/10/19 07:25 Pulse Ox 95 12/10/19 07:25 Weight: 74.48 kg - Exam General: Alert, Oriented, Cooperative. No: Mild Distress HEENT: Conjunctiva Clear, EACs Clear, EOMI, Mucosa Moist & [place] Neck: Supple, Trachea Midline, +2 Carotid Pulse wo Bruit, Full Range of Motion. No: Lymphadenopathy Lungs: Clear to Auscultation, Normal Respiratory Effort. No: Decreased Breath Sounds, Crackles, Rales, Rhonchi, Rub, Wheezing Cardiovascular: Regular Rate, Regular Rhythm. No: Systolic Murmur, Diastolic Murmur, Rubs, Gallop/S3, Gallop/S4 GI/Abdominal Exam: Normal Bowel Sounds, Soft, Non-Tender. No: Distended, Guarding, Rigid, Rebound Back Exam: Normal Inspection. No: CVA Tenderness (L), CVA Tenderness (R), Paraspinal Tenderness, Vertebral Tenderness Extremities: Normal Inspection, Normal Range of Motion, Non-Tender, Normal Capillary Refill, Pedal Edema - Patient Data Result Diagrams: 12/10/19 03:45 12/10/19 03:45 Sepsis Event Note - Evaluation Sepsis Screening Result: No Definite Risk - Focused Exam Vital Signs: Vital Signs Temp Pulse Resp BP Pulse Ox 12/10/19 07:25 97.5 F 66 16 159/76 H 95 12/10/19 04:51 97.7 F 66 16 110/80 96 12/10/19 00:10 97.5 F 75 18 136/95 H 94 L 12/09/19 21:51 97.5 F 78 18 134/91 H 96 Date Exam was Performed: 12/10/19 Time Exam was Performed: 11:39 - Problem List (1) Non-STEMI (non-ST elevated myocardial infarction) SNOMED Code(s): 43962255 ICD Code: I21.4 - NON-ST ELEVATION (NSTEMI) MYOCARDIAL INFARCTION Status: Acute Current Visit: Yes (2) Dyspnea SNOMED Code(s): 022917720 ICD Code: R06.00 - DYSPNEA, UNSPECIFIED Status: Acute Current Visit: No Qualifiers: Dyspnea type: shortness of breath Qualified Code(s): R06.02 - Shortness of breath; R06.00 - Dyspnea, unspecified; R06.01 - Orthopnea (3) Coronary artery disease SNOMED Code(s): 05387331 ICD Code: I25.10 - ATHSCL HEART DISEASE OF [place] CORONARY ARTERY W/O ANG PCTRS Status: Acute Current Visit: Yes (4) Stented coronary artery Status: Acute Current Visit: Yes (5) Chronic kidney disease (CKD), stage III (moderate) SNOMED Code(s): 807270476 ICD Code: N18.3 - CHRONIC KIDNEY DISEASE, STAGE 3 (MODERATE) Status: Acute Current Visit: Yes (6) Hypertension SNOMED Code(s): 16357835 ICD Code: I10 - ESSENTIAL (PRIMARY) HYPERTENSION Status: Acute Current Visit: Yes Problem List Initiated/Reviewed/Updated: Yes Assessment/Plan Comment:: Non-STEMI (non-ST elevated myocardial infarction) Dyspnea Coronary artery disease Stented coronary artery with restenosis and re-stenting 10 yrs ago Endorses compliance with medications Slow R wave progression on EKG without St segments changes PLAN - Admitted on full dose Lovenox, beta bettina, AUBREE, statin and PRN NTG - Telemetry Chronic kidney disease (CKD), stage III (moderate) GFR 42 PLAN - Avoid nephrotoxic medications - Renally dosed medications - Monitor urine output Hypertension BP on admission 153/84 PLAN - Reconcile home medications PROPHYLAXIS: DVT- Full dose lovenox GI- Not indicated CODE STATUS: FULL CODE DISPOSITION: Patient will be admitted temporarily awaiting bed availability in [place] since she needs angiogram with possible stenting of CAD. - Mortality Measure Prognosis:: Good
[2019-12-10] MEDS ORDERED: Furosemide 20 MG Tab PO SCH (09:30)
[2019-12-10] MEDS ORDERED: Aspirin 81 MG Tab.Chew PO SCH (09:30)
[2019-12-10] MEDS ORDERED: Rosuvastatin 10 MG Tab PO SCH (09:30)
[2019-12-10] MEDS ORDERED: Metoprolol Succinate 25 MG Tab.ER PO SCH (09:30)
[2019-12-10 11:53] VITALS: BP 134/82; PULSE 73
--- NOTE | 2019-12-10 11:57 | PCM.DCSUM1 ---
Discharge Summary - Hospital Course HPI Initial Comments: This is an 89-year-old male who comes to the ED complaining of elevated blood pressure. As per patient she normally ranges between 130's/70's, she does not recall particular number but does note it was significantly higher that normal. She notes about a week ago she thought she was coming down with URI because she started having worsening shortness of breath however symptoms did not really fully manifest except for the shortness of breath. Diagnosis: Stroke: No - Discharge Data Discharge Date: 12/10/19 Discharge Disposition: DC/Tfer to Acute Hospital 02 Condition: Good - Referral to Home Health Primary Care Physician: Wayne Velez MD - Discharge Diagnosis/Problem(s) (1) Non-STEMI (non-ST elevated myocardial infarction) SNOMED Code(s): 87837180 ICD Code: I21.4 - NON-ST ELEVATION (NSTEMI) MYOCARDIAL INFARCTION Status: Acute Current Visit: Yes (2) Dyspnea SNOMED Code(s): 594670409 ICD Code: R06.00 - DYSPNEA, UNSPECIFIED Status: Acute Current Visit: No Qualifiers: Dyspnea type: shortness of breath Qualified Code(s): R06.02 - Shortness of breath; R06.00 - Dyspnea, unspecified; R06.01 - Orthopnea (3) Coronary artery disease SNOMED Code(s): 50695456 ICD Code: I25.10 - ATHSCL HEART DISEASE OF [place] CORONARY ARTERY W/O ANG PCTRS Status: Acute Current Visit: Yes (4) Stented coronary artery Status: Acute Current Visit: Yes (5) Chronic kidney disease (CKD), stage III (moderate) SNOMED Code(s): 345372591 ICD Code: N18.3 - CHRONIC KIDNEY DISEASE, STAGE 3 (MODERATE) Status: Acute Current Visit: Yes (6) Hypertension SNOMED Code(s): 81362372 ICD Code: I10 - ESSENTIAL (PRIMARY) HYPERTENSION Status: Acute Current Visit: Yes - Patient Summary/Data Hospital Course: Patient came in to the ED Found to have elevated troponin with slow r wave progression on admission EKG, no changes on ST segment Admitted on full dose lovenox, ACEI, beta bettina, statin high intensity Called [facility] today and transfer was accepted . - Discharge Plan Home Medications: Home Meds Aspirin 81 mg PO DAILY 02/06/17 [History] Ezetimibe/Simvastatin [Vytorin 10-40 mg Tablet] 1 tab PO DAILY 02/06/17 [History ] Calcium Carbonate/Vitamin D3 [Calcium 500 + Vit D 400] 1 tab PO ASDIRECTED 08/13 [History] Furosemide [Lasix] 20 mg PO DAILY 08/13/19 [History] Metoprolol Succinate [Toprol XL] 25 mg PO DAILY 08/13/19 [History] [place]-3/DHA/Epa/Fish Oil [[place]-3 Fish Oil 1,000 MG Sfgl] 720 mg PO DAILY [History] metFORMIN [Glucophage] 250 mg PO DAILY 08/13/19 [History] Amoxicillin 500 mg PO Q6HR 12/09/19 [History] Patient Handouts: Heart Attack, [id number], Heart Failure, [id number] Forms: ED Department Discharge Referrals: Wayne Velez MD [Primary Care Provider] - - Discharge Summary/Plan Comment DC Time >30 min.: Yes - General Info Date of Service: 12/10/19 Subjective Update: Feeling OK Ambulating alone Voiding urine ok - Patient Data Vitals - Most Recent: Last Vital Signs Temp 97.3 F 12/10/19 11:43 Pulse 73 12/10/19 11:43 Resp 16 12/10/19 11:43 BP 134/82 12/10/19 11:43 Pulse Ox 96 12/10/19 11:43 Weight - Most Recent: 74.48 kg - Exam Physical Findings Comments:: General: Alert, Oriented, Cooperative. No: Mild Distress HEENT: Conjunctiva Clear, EACs Clear, EOMI, Mucosa Moist & [place] Neck: Supple, Trachea Midline, +2 Carotid Pulse wo Bruit, Full Range of Motion. No: Lymphadenopathy Lungs: Clear to Auscultation, Normal Respiratory Effort. No: Decreased Breath Sounds, Crackles, Rales, Rhonchi, Rub, Wheezing Cardiovascular: Regular Rate, Regular Rhythm. No: Systolic Murmur, Diastolic Murmur, Rubs, Gallop/S3, Gallop/S4 GI/Abdominal Exam: Normal Bowel Sounds, Soft, Non-Tender. No: Distended, Guarding, Rigid, Rebound Back Exam: Normal Inspection. No: CVA Tenderness (L), CVA Tenderness (R), Paraspinal Tenderness, Vertebral Tenderness Extremities: Normal Inspection, Normal Range of Motion, Non-Tender, Normal Capillary Refill, Pedal Edema EKG INTERPRETATION EKG Date: 12/10/19 Rhythm: NSR [place]: Normal P-Wave: Present QRS: Normal ST-T: Normal EKG Interpretation Comments: Slow R wave progression Q waves on anterolateral leads
== END 2019-12-10 12:25 | DRG 282 ==
LOC: JD.ED 15:40 → JD.MS 20:54
PROVIDERS: ADMIT Internal Medicine; ATTEND Internal Medicine
DX: I21.4 Non-ST elevation (NSTEMI) myocardial infarction (principal); H54.7 Unspecified visual loss; I25.10 Atherosclerotic heart disease of native coronary artery without angina pectoris; I10 Essential (primary) hypertension; N18.3 Chronic kidney disease, stage 3 (moderate); I25.2 Old myocardial infarction; E78.00 Pure hypercholesterolemia, unspecified; K59.09 Other constipation; J44.9 Chronic obstructive pulmonary disease, unspecified; M48.061 Spinal stenosis, lumbar region without neurogenic claudication; F41.9 Anxiety disorder, unspecified; Z96.649 Presence of unspecified artificial hip joint; I12.9 Hypertensive chronic kidney disease with stage 1 through stage 4 chronic kidney disease, or unspecified chronic kidney disease; Z90.710 Acquired absence of both cervix and uterus; Z79.82 Long term (current) use of aspirin; Z79.84 Long term (current) use of oral hypoglycemic drugs; Z79.899 Other long term (current) drug therapy; Z98.49 Cataract extraction status, unspecified eye; Z90.49 Acquired absence of other specified parts of digestive tract; Z95.5 Presence of coronary angioplasty implant and graft
CPT/HCPCS: 36415; 71045; 80053; 83880; 84484 ×2; 85025; 93005; A9270 ×3; J1650; 93010; 96372; 99223; 99285; 99285-25

== ENCOUNTER 2020-08-03 06:10 | Emergency (ER) | payer MEDICARE, OTHER ==
[2020-08-03] MEDS ORDERED: Sodium Chloride 0.9% 10 ML Syringe FLUSH PRN ×2 (07:05→08:32)
[2020-08-03] MEDS ORDERED: Albuterol 6.7 GM Inhaler INH ONE (07:07)
--- NOTE | 2020-08-03 08:13 | EDM.PDOC ---
ED HPI GENERAL MEDICAL PROBLEM - General Chief Complaint: Respiratory Problem Stated Complaint: SOB Time Seen by Provider: 08/03/20 06:56 Source of Information: Reports: Patient History Limitations: Reports: No Limitations - History of Present Illness INITIAL COMMENTS - FREE TEXT/NARRATIVE: The patient presents with shortness of breath. This started about midnight last night. She has no chest pain with it. She does have a slight cough. She does have a history of CAD, AK and stents. She was seen here in December and had a nonSTEMI and she was transferred to [place]. She has no fever, chills, abdominal pain, nausea, vomiting or diarrhea. Onset: Gradual Duration: Hour(s): Severity: Moderate Improves with: Reports: None Worsens with: Reports: None Associated Symptoms: Reports: Shortness of Breath. Denies: Chest Pain, Cough, Fever/Chills, Headaches, Nausea/Vomiting - Related Data Allergies Allergy/AdvReac Type Severity Reaction Status Date / Time No Known Allergies Allergy Verified 08/03/20 06:31 Home Meds: Home Meds Aspirin 81 mg PO DAILY 02/06/17 [History] Ezetimibe/Simvastatin [Vytorin 10-40 mg Tablet] 1 tab PO DAILY 02/06/17 [H istory] Furosemide [Lasix] 20 mg PO DAILY 08/13/19 [History] Metoprolol Succinate [Toprol XL] 25 mg PO DAILY 08/13/19 [History] [place]-3/DHA/Epa/Fish Oil [[place]-3 Fish Oil 1,000 MG Sfgl] 720 mg PO DAILY 08/13/19 [History] metFORMIN [Glucophage] 250 mg PO DAILY 08/13/19 [History] Cinnamon Bark [Cinnamon] 500 mg PO DAILY 08/03/20 [History] Past Medical History HEENT History: Reports: Impaired Vision, Other (See Below) Other HEENT History: wears glasses Cardiovascular History: Reports: CAD, High Cholesterol, Hypertension, [place], Stents, Other (See Below) Other Cardiovascular History: arteriosclerotic heart disease Respiratory History: Reports: Other (See Below) Other Respiratory History: upper respiratory infection Gastrointestinal History: Reports: Cholelithiasis, Chronic Constipation, Hiatal Hernia 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: Musculoskeletal History: Reports: Other (See Below) Other Musculoskeletal History: lumbar spinal stenosis Neurological History: Reports: None Psychiatric History: Reports: Anxiety Endocrine/Metabolic History: Reports: None Hematologic History: Reports: None Immunologic History: Reports: None Oncologic (Cancer) History: Reports: None Dermatologic History: Reports: Other (See Below) Other Dermatologic History: seborrheic keratosis - Infectious Disease History Infectious Disease History: Reports: Chicken Pox, Measles - Past Surgical History Head Surgeries/Procedures: Reports: None HEENT Surgical History: Reports: Cataract Surgery Cardiovascular Surgical History: Reports: Coronary Artery Stent GI Surgical History: Reports: Cholecystectomy Female Surgical History: Reports: Hysterectomy Neurological Surgical History: Reports: Other (See Below) Other Neurological Surgeries/Procedures: back sx to remove spurs Musculoskeletal Surgical History: Reports: Carpal Tunnel, Hip Replacement, Other (See Below) Other Musculoskeletal Surgeries/Procedures:: L leg distal fibular fx, Social & Family History - Family History Family Medical History: Noncontributory - Tobacco Use Smoking Status *Q: Never Smoker - Caffeine Use Caffeine Use: Reports: None - Recreational Drug Use Recreational Drug Use: No ED ROS GENERAL - Review of Systems Review Of Systems: See Below Constitutional: Reports: No Symptoms HEENT: Reports: No Symptoms Respiratory: Reports: Shortness of Breath, Cough Cardiovascular: Reports: No Symptoms Endocrine: Reports: No Symptoms GI/Abdominal: Reports: No Symptoms : Reports: No Symptoms Musculoskeletal: Reports: No Symptoms ED EXAM, GENERAL - Physical Exam Exam: See Below Exam Limited By: No Limitations General Appearance: Alert, No Apparent Distress Ears: Normal External Exam Nose: Normal Inspection Head: Atraumatic, Normocephalic Neck: Normal Inspection, Supple, Non-Tender Respiratory/Chest: No Respiratory Distress, Decreased Breath Sounds Cardiovascular: Regular Rate, Rhythm, No Edema, No Murmur GI/Abdominal: Soft, Non-Tender, No Organomegaly, No Mass Extremities: Normal Inspection Neurological: Alert, Oriented, No Motor/Sensory Deficits EKG INTERPRETATION EKG Date: 08/03/20 Time: 19:35 Rhythm: NSR Rate (Beats/Min): 80 Wolsey: LAD-Left Wolsey Deviation P-Wave: Present QRS: Normal ST-T: Normal QT: Normal NV/PQ Interval: 1st degree HB EKG Interpretation Comments: Q waves in the inferior and anterior leads Course - Vital Signs Last Recorded V/S: Last Vital Signs Temp 97.0 F 08/03/20 06:29 Pulse 88 08/03/20 06:29 Resp 25 H 08/03/20 06:29 BP 181/100 H 08/03/20 06:29 Pulse Ox 95 08/03/20 07:30 - Orders/Labs/Meds Orders: Active Orders 24 hr Category Date Time Status Cardiac Monitoring [RC] . DIRECTED Care 08/03/20 07:05 Active EKG Documentation Completion [RC] STAT Care 08/03/20 07:06 Active Oxygen Therapy [RC] PRN Care 08/03/20 07:05 Active Peripheral IV Care [RC] . DIRECTED Care 08/03/20 07:06 Active RT Post Treatment Assessment [RC] Click to Edit Care 08/03/20 07:07 Active RT Pre-Treatment Assessment [RC] Click to Edit Care 08/03/20 07:07 Active Ang Chest [CT] Stat Exams 08/03/20 08:30 Taken Chest 1V Frontal [CR] Stat Exams 08/03/20 07:06 Taken Sodium Chloride 0.9% [Normal Saline] 1,000 ml Med 08/03/20 08:30 Active IV ASDIRECTED Sodium Chloride 0.9% [Normal Saline] 100 ml Med 08/03/20 08:45 Active IV ASDIRECTED Sodium Chloride 0.9% [Saline Flush] Med 08/03/20 07:05 Active 10 ml FLUSH ASDIRECTED PRN Sodium Chloride 0.9% [Saline Flush] Med 08/03/20 08:32 Active 10 ml FLUSH ONETIME PRN Peripheral IV Insertion Adult [OM.PC] Stat Oth 08/03/20 07:05 Ordered Medication Orders Sodium Chloride (Normal Saline) 1,000 mls @ 150 mls/hr IV ASDIRECTED ELI Last Admin: 08/03/20 10:14 Dose: 150 mls/hr Documented by: OMAR Sodium Chloride (Normal Saline) 100 mls @ 75 mls/hr IV ASDIRECTED ELI Last Admin: 08/03/20 10:18 Dose: 75 mls/hr Documented by: SALAS Sodium Chloride (Saline Flush) 10 ml FLUSH ASDIRECTED PRN PRN Reason: Keep Vein Open Last Admin: 08/03/20 09:44 Dose: 10 ml Documented by: OMAR Sodium Chloride (Saline Flush) 10 ml FLUSH ONETIME PRN PRN Reason: IV FLUSH Last Admin: 08/03/20 11:18 Dose: 10 ml Documented by: OMAR Labs: Laboratory Tests 08/03/20 08/03/20 08/03/20 Range/Units 07:30 07:30 07:30 WBC 9.55 (3.98-10.04) K/mm3 RBC 5.23 H (3.98-5.22) M/mm3 Hgb 14.5 (11.2-15.7) gm/dl Hct 45.3 H (34.1-44.9) % MCV 86.6 (79.4-94.8) fl MCH 27.7 (25.6-32.2) pg MCHC 32.0 L (32.2-35.5) g/dl RDW Std Deviation 48.5 H (36.4-46.3) fL Plt Count 347 (182-369) K/mm3 MPV 9.4 (9.4-12.3) fl Neut % (Auto) 82.5 H (34.0-71.1) % Lymph % (Auto) 11.2 L (19.3-51.7) % [place] % (Auto) 5.8 (4.7-12.5) % Eos % (Auto) 0.2 L (0.7-5.8) Baso % (Auto) 0.2 (0.1-1.2) % Neut # (Auto) 7.88 H (1.56-6.13) K/mm3 Lymph # (Auto) 1.07 L (1.18-3.74) K/mm3 [place] # (Auto) 0.55 H (0.24-0.36) K/mm3 Eos # (Auto) 0.02 L (0.04-0.36) K/mm3 Baso # (Auto) 0.02 (0.01-0.08) K/mm3 D-Dimer, Quantitative 1.02 H (0.19-0.50) mg/L Sodium 139 (136-145) mEq/L Potassium 4.6 (3.5-5.1) mEq/L Chloride 103 (98-107) mEq/L Carbon Dioxide 29 (21-32) mEq/L Anion Gap 11.6 (5-15) BUN 19 H (7-18) mg/dL Creatinine 1.1 H (0.55-1.02) mg/dL Est Cr Clr Drug Dosing 29.94 mL/min Estimated GFR (MDRD) 47 (>60) mL/min BUN/Creatinine Ratio 17.3 (14-18) Glucose 132 H (83-115) mg/dL Calcium 9.5 (8.5-10.1) mg/dL Total Bilirubin 1.0 (0.2-1.0) mg/dL AST 35 (15-37) U/L ALT 33 (14-59) U/L Alkaline Phosphatase 106 (46-116) U/L Troponin I 0.107 H* (0.00-0.056) ng/mL Total Protein 7.5 (6.4-8.2) g/dl Albumin 3.4 (3.4-5.0) g/dl Globulin 4.1 gm/dL Albumin/Globulin Ratio 0.8 L (1-2) SARS-CoV-2 RNA (SAVANNA) (NEGATIVE) 08/03/20 08/03/20 Range/Units 09:15 10:12 WBC (3.98-10.04) K/mm3 RBC (3.98-5.22) M/mm3 Hgb (11.2-15.7) gm/dl Hct (34.1-44.9) % MCV (79.4-94.8) fl MCH (25.6-32.2) pg MCHC (32.2-35.5) g/dl RDW Std Deviation (36.4-46.3) fL Plt Count (182-369) K/mm3 MPV (9.4-12.3) fl Neut % (Auto) (34.0-71.1) % Lymph % (Auto) (19.3-51.7) % [place] % (Auto) (4.7-12.5) % Eos % (Auto) (0.7-5.8) Baso % (Auto) (0.1-1.2) % Neut # (Auto) (1.56-6.13) K/mm3 Lymph # (Auto) (1.18-3.74) K/mm3 [place] # (Auto) (0.24-0.36) K/mm3 Eos # (Auto) (0.04-0.36) K/mm3 Baso # (Auto) (0.01-0.08) K/mm3 D-Dimer, Quantitative (0.19-0.50) mg/L Sodium (136-145) mEq/L Potassium (3.5-5.1) mEq/L Chloride (98-107) mEq/L Carbon Dioxide (21-32) mEq/L Anion Gap (5-15) BUN (7-18) mg/dL Creatinine (0.55-1.02) mg/dL Est Cr Clr Drug Dosing mL/min Estimated GFR (MDRD) (>60) mL/min BUN/Creatinine Ratio (14-18) Glucose (83-115) mg/dL Calcium (8.5-10.1) mg/dL Total Bilirubin (0.2-1.0) mg/dL AST (15-37) U/L ALT (14-59) U/L Alkaline Phosphatase (46-116) U/L Troponin I 0.105 H* (0.00-0.056) ng/mL Total Protein (6.4-8.2) g/dl Albumin (3.4-5.0) g/dl Globulin gm/dL Albumin/Globulin Ratio (1-2) SARS-CoV-2 RNA (SAVANNA) Negative (NEGATIVE) Meds: Medications Generic Name Dose Route Start Last Admin Trade Name Freq PRN Reason Stop Dose Admin Sodium Chloride 1,000 mls @ 150 mls/hr 08/03/20 08:30 08/03/20 10:14 Normal Saline IV 150 mls/hr ASDIRECTED ELI Administration Sodium Chloride 100 mls @ 75 mls/hr 08/03/20 08:45 08/03/20 10:18 Normal Saline IV 75 mls/hr ASDIRECTED ELI Administration Sodium Chloride 10 ml 08/03/20 07:05 08/03/20 09:44 Saline Flush FLUSH 10 ml ASDIRECTED PRN Administration Keep Vein Open Sodium Chloride 10 ml 08/03/20 08:32 08/03/20 11:18 Saline Flush FLUSH 10 ml ONETIME PRN Administration IV FLUSH Discontinued Medications Generic Name Dose Route Start Last Admin Trade Name Freq PRN Reason Stop Dose Admin Albuterol 0 gm 08/03/20 07:07 08/03/20 07:30 Proventil Hfa INH 08/03/20 07:08 2 puff ONETIME ONE Administration Aspirin 324 mg 08/03/20 08:26 08/03/20 09:43 Aspirin PO 08/03/20 08:27 324 mg ONETIME ONE Administration Iopamidol 100 ml 08/03/20 08:32 08/03/20 10:18 Isovue-370 (76%) IVPUSH 08/03/20 08:33 100 ml ONETIME ONE Administration - Re-Assessments/Exams Free Text/Narrative Re-Assessment/Exam: 08/03/20 08:20 I ordered an IV saline lock, CXR, EKG, labs and albuterol 2 puffs. Her CXR shows chronic scaring. Her CBC looks good. Her D-dimer was elevated at 1.02. Her creatinine is elevated at 1.1. Her glucose is elevated at 132. Her troponin is elevated at 0.107. I have ordered aspirin, COVID 19 test, fluids and a CT angio. 08/03/20 11:28 Her repeat troponin is better at 0.105. She was sent to [place] last time and they did nothing. They said this is normal for her. Her CT shows overall there is no appearing changes since the previous examination except slight improvement in the middle lobe. There is no pulmonary emboli. Bilateral effusions and areas of infiltrate appearing to be chronic given the time frame between examinations now noted. I will increased her lasix for 3 days and have her use an inhaler as needed. Departure - Departure Time of Disposition: 11:30 Disposition: Home, Self-Care 01 Condition: Good Clinical Impression: Bilateral pleural effusion - Discharge Information *PRESCRIPTION DRUG MONITORING PROGRAM REVIEWED*: Not Applicable *COPY OF PRESCRIPTION DRUG MONITORING REPORT IN PATIENT JOYCELYN: Not Applicable Referrals: Wayne Velez MD [Primary Care Provider] - 1 Week Forms: ED Department Discharge Additional Instructions: Take 2 doses of lasix daily for 3 days and then take 1 dose of lasix after that. Take the rest of your pills like normal. Follow up with Dr Velez within a week. Please return if you are worse. Sepsis Event Note (ED) - Evaluation Sepsis Screening Result: No Definite Risk - Focused Exam Vital Signs: Vital Signs Temp Pulse Resp BP Pulse Ox Pulse Ox 08/03/20 07:30 95 08/03/20 06:29 97.0 F 88 25 H 181/100 H 95 - My Orders Last 24 Hours: My Active Orders 08/03/20 07:05 Cardiac Monitoring [RC] . DIRECTED Oxygen Therapy [RC] PRN Sodium Chloride 0.9% [Saline Flush] 10 ml FLUSH ASDIRECTED PRN Peripheral IV Insertion Adult [OM.PC] Stat 08/03/20 07:06 EKG Documentation Completion [RC] STAT Peripheral IV Care [RC] . DIRECTED Chest 1V Frontal [CR] Stat 08/03/20 07:07 RT Post Treatment Assessment [RC] Click to Edit RT Pre-Treatment Assessment [RC] Click to Edit 08/03/20 08:30 Ang Chest [CT] Stat Sodium Chloride 0.9% [Normal Saline] 1,000 ml IV ASDIRECTED 08/03/20 08:32 Sodium Chloride 0.9% [Saline Flush] 10 ml FLUSH ONETIME PRN 08/03/20 08:45 Sodium Chloride 0.9% [Normal Saline] 100 ml IV ASDIRECTED - Assessment/Plan Last 24 Hours: My Active Orders 08/03/20 07:05 Cardiac Monitoring [RC] . DIRECTED Oxygen Therapy [RC] PRN Sodium Chloride 0.9% [Saline Flush] 10 ml FLUSH ASDIRECTED PRN Peripheral IV Insertion Adult [OM.PC] Stat 08/03/20 07:06 EKG Documentation Completion [RC] STAT Peripheral IV Care [RC] . DIRECTED Chest 1V Frontal [CR] Stat 08/03/20 07:07 RT Post Treatment Assessment [RC] Click to Edit RT Pre-Treatment Assessment [RC] Click to Edit 08/03/20 08:30 Ang Chest [CT] Stat Sodium Chloride 0.9% [Normal Saline] 1,000 ml IV ASDIRECTED 08/03/20 08:32 Sodium Chloride 0.9% [Saline Flush] 10 ml FLUSH ONETIME PRN 08/03/20 08:45 Sodium Chloride 0.9% [Normal Saline] 100 ml IV ASDIRECTED
[2020-08-03] MEDS ORDERED: Aspirin 81 MG Tab.Chew PO ONE (08:26)
[2020-08-03] MEDS ORDERED: Sodium Chloride 0.9% 1,000 ML IV SCH (08:30)
[2020-08-03] MEDS ORDERED: Iopamidol 755 Mg/ML 100 ML Bottle IVPUSH ONE (08:32)
[2020-08-03] MEDS ORDERED: Sodium Chloride 0.9% 100 ML IV SCH (08:45)
[2020-08-03 11:48] VITALS: BP 154/94; PULSE 81
--- NOTE | 2020-09-06 11:27 | CR ---
PROCEDURE INFORMATION: Exam: XR Chest, 1 View Exam date and time: 08/03/2020 7:02 AM Age: 89 years old Clinical indication: Chest pain TECHNIQUE: Imaging protocol: XR of the chest Views: 1 view. COMPARISON: CR Chest 1V Frontal 12/09/2019 4:57 PM FINDINGS: Lungs: There is moderate perihilar interstitial prominence consistent with volume overload or congestive heart failure. Ground-glass airspace disease and atelectasis at the lower lung guerrier bilaterally. Pleural space: There are bilateral small pleural effusions blunting the costophrenic angles. Heart/Mediastinum: The heart is enlarged. Bones/joints: Unremarkable. IMPRESSION: 1. There is moderate perihilar interstitial prominence consistent with volume overload or congestive heart failure. 2. Ground-glass airspace disease and atelectasis at the lower lung guerrier bilaterally. This may be due to superimposed pneumonia or reflect asymmetric CHF. Thank you for allowing us to participate in the care of your patient. Dictated and Authenticated by: Kingsley Soares MD 09/06/2020 5:46 AM Central Time ([place] & [place]) [facility]
--- NOTE | 2020-09-13 09:37 | CT ---
PROCEDURE INFORMATION: Exam: CT Angiography Chest With Contrast Exam date and time: 08/03/2020 8:30 AM Age: 89 years old Clinical indication: Shortness of breath; Patient HX: SOB pos d-dimer; Additional info: This is a CT of the chest to look for blodd clots TECHNIQUE: Imaging protocol: Computed tomographic angiography of the chest with intravenous contrast. 3D rendering (Not supervised by radiologist): MIP and/or 3D reconstructed images were created by the technologist. Radiation optimization: All CT scans at this facility use at least one of these dose optimization techniques: automated exposure control; mA and/or kV adjustment per patient size (includes targeted exams where dose is matched to clinical indication); or iterative reconstruction. COMPARISON: CT Ang Chest 08/02/2019 10:53 AM FINDINGS: Pulmonary arteries: There is no evidence of pulmonary emboli. Aorta: The ascending aorta is again ectatic now 36 mm. Lungs: Subtle areas of atelectasis are noted bilaterally and these appear similar to the previous examination possibly chronic scarring given the time frame between the examinations. There is slight improvement in the middle lobe peripheral consolidation. Minimal areas of ground-glass appearance are noted stable within the lungs. Pleural space: There is a stable right pleural effusion. There is a stable left pleural effusion. Heart: There is cardiomegaly. Lymph nodes: There is a 20 x 16 mm right hilar lymph node which is stable. There is a stable fatty centered 16 mm pretracheal lymph node. Gallbladder and bile ducts: Again there are cholecystectomy clips. Bones/joints: Unremarkable. No acute fracture. Soft tissues: Unremarkable. IMPRESSION: Overall there has been no appearing changes since the previous examination except slight improvement in the middle lobe.. There is no pulmonary emboli. Bilateral effusions and areas of infiltrate appearing to be chronic given the time frame between examinations are now noted. Thank you for allowing us to participate in the care of your patient. Dictated and Authenticated by: Escobar Salcido MD 09/12/2020 1:19 PM Central Time ([place] & [place]) [facility]
== END 2020-08-03 11:48 | disposition home or self-care (01) ==
LOC: JD.ED 06:10
DX: J90 Pleural effusion, not elsewhere classified (principal); I25.10 Atherosclerotic heart disease of native coronary artery without angina pectoris; E78.00 Pure hypercholesterolemia, unspecified; I10 Essential (primary) hypertension; I25.2 Old myocardial infarction; Z95.5 Presence of coronary angioplasty implant and graft; Z79.84 Long term (current) use of oral hypoglycemic drugs; Z79.899 Other long term (current) drug therapy; Z20.828 Contact with and (suspected) exposure to other viral communicable diseases; Z79.82 Long term (current) use of aspirin
CPT/HCPCS: 36415; 71045; 71275; 80053; 84484; 85025; 85379; 93005; 94640; 96360; 99285; A9270; J7030; J7050; Q9967; U0002; 93010; 99283